=== PATIENT | male | born 1955 | race Caucasian/White ===

== ENCOUNTER 2022-04-20 06:46 | Day surgery (SDC) | payer MEDICARE ==
[~2022-04-20] VITALS: Ht 188 cm; Wt 112.9 kg
[~2022-04-20 06:46] MED LIST: Amlodipine Bes2.5 MG PO; Crestor20 MG PO; METO25ER PO; ZESTRIL40 M1 PO
--- NOTE | 2022-04-20 07:09 | NUR ---
04/20/22 0709 iSsi [place] CALL LIGHT WITHIN REACH. TETRACAINE AT 0659 AND PLEDGETT AT 0700 IN THE RIGHT EYE
--- NOTE | 2022-04-20 09:41 | NUR ---
04/20/22 0941 Marry Avendano CHARTED ON WRONG PT, CORRECTED.
== END 2022-04-20 09:05 | disposition home or self-care (01) ==
LOC: ORSCSDS 06:46
PROVIDERS: Ophthalmology
PROC: 08RJ3JZ Replacement of Right Lens with Synthetic Substitute, Percutaneous Approach (ICD-10-PCS; principal; 2022-04-20 08:00)
DX: H25.13 Age-related nuclear cataract, bilateral (principal); I10 Essential (primary) hypertension; E78.5 Hyperlipidemia, unspecified; E03.9 Hypothyroidism, unspecified; Z79.899 Other long term (current) drug therapy; Z85.47 Personal history of malignant neoplasm of testis
CPT/HCPCS: J2001; J2250; J3010; J3301; J7040; V2632

== ENCOUNTER 2022-04-27 09:29 | Day surgery (SDC) | payer MEDICARE ==
[~2022-04-27] VITALS: Ht 188 cm; Wt 113.8 kg
--- NOTE | 2022-04-27 10:28 | NUR ---
04/27/22 1028 Sisi [place] CALL LIGHT WITHIN REACH. TETRACAINE IN THE LEFT EYE AT 1022 AND PLEDGETT AT 1024
--- NOTE | 2022-04-27 11:29 | NUR ---
04/27/22 1129 CLAUDIA MARTINEZ PROCEDURE DONE UNDER LOCAL CAME IN EARLY.
== END 2022-04-27 11:35 | disposition home or self-care (01) ==
LOC: ORSCSDS 09:29
PROVIDERS: Ophthalmology
PROC: 08RK3JZ Replacement of Left Lens with Synthetic Substitute, Percutaneous Approach (ICD-10-PCS; principal; 2022-04-27 14:00)
DX: H25.12 Age-related nuclear cataract, left eye (principal); Z96.1 Presence of intraocular lens; I10 Essential (primary) hypertension; Z79.899 Other long term (current) drug therapy
CPT/HCPCS: J2001; J3301; J7040; V2632

== ENCOUNTER 2023-01-03 08:53 | Day surgery (SDC) | payer MEDICARE ==
[2023-01-03] VITALS (12 sets, daily range): BP systolic 105–155; BP diastolic 49–81
[~2023-01-03] VITALS: Ht 188 cm; Wt 109.0 kg
[2023-01-03] MEDS ORDERED: ASPI81CH PO (09:27)
--- NOTE | 2023-01-03 13:00 | NUR ---
PATIENT ARRIVED TO THE RECOVERY ROOM WITH FEM STOP IN PLACE OVER FEMORAL SITE. HEMATOMA NOTED. NO OOZING OR VISUAL BLEEDING FROM MYNX SITE. PATIENT HOB FLAT. SAND BAG PLACED OVER RIGHT GROIN SITE WITH FEM STOP HOLDING IN PLACE. VSS ON ROOM AIR.
[2023-01-03] MEDS ORDERED: CLOP75 PO (14:02)
--- NOTE | 2023-01-03 14:45 | NUR ---
MD AT BEDSIDE, HEMATOMA NOTED.
--- NOTE | 2023-01-03 15:00 | NUR ---
FEM STOP REMOVED FROM R GROIN SITE, NO EVIDENCE OF HEMATOMA ENLARGING. VSS ON ROOM AIR.
--- NOTE | 2023-01-03 15:04 | NUR ---
DR LINDSAY IN TO REVIEW R GROIN SITE, FEMSTOP WITH SLIGHT PRESSURE ON BAG FOR PRESSURE TO SITE
--- NOTE | 2023-01-03 16:05 | NUR ---
DISCHARGE PAPERWORK REVIEWED WITH PATIETN. ALL QUESTIONS WERE ANSWERED. PATIENT SCHEDULED FOR NEXT PROCEDURE. R GROIN SITE HEMATOMA NOTED, NO CHANGES IN GROWTH. NO SIGNS OF ACTIVE BLEEDING. VSS ON ROOM AIR.
--- NOTE | 2023-01-03 16:30 | NUR ---
PATIENT DISCHARGED HOME AT THIS TIME. ALL PATIENT BELONGINGS AND PAPERWORK LEFT WITH PATIENT. R GROIN SITE TENDER, NO EVIDENCE OF HEMATOMA ENLARGING. VSS ON ROOM AIR. PATIENT WHEELED TO HOSPITAL ENTRANCE, ABLE TO TRANSPORT HOME.
== END 2023-01-03 16:30 | disposition home or self-care (01) ==
LOC: MHTC 08:53
DX: I70.223 Atherosclerosis of native arteries of extremities with rest pain, bilateral legs (principal); I12.9 Hypertensive chronic kidney disease with stage 1 through stage 4 chronic kidney disease, or unspecified chronic kidney disease; N18.9 Chronic kidney disease, unspecified; G47.33 Obstructive sleep apnea (adult) (pediatric)
CPT/HCPCS: 76937; 99152; 99153; C1725; C1760; C1769; C1887; C1894; C2623; J1644; J2250; J3010; J7030; J7050; Q9967

== ENCOUNTER 2023-01-23 10:59 | Day surgery (SDC) | payer MEDICARE ==
[~2023-01-23] VITALS: Ht 188 cm; Wt 109.0 kg
[2023-01-23] VITALS (7 sets, daily range): BP systolic 103–158; BP diastolic 44–63
[~2023-01-23 10:59] MED LIST changes: +ASPI81CH PO; +CLOP75 PO
--- NOTE | 2023-01-23 14:33 | NUR ---
PATIENT ARRIVED TO RECOVERY ROOM CONVERSING APPROPRIATELY. HOB FLAT. L GROIN SITE C/D/I SOFT/NONTENDER, NO EVIDENCE OF HEMATOMA. PATIENT DENYING ANY PAIN. VSS ON ROOM AIR.
--- NOTE | 2023-01-23 15:23 | NUR ---
HOB ELEVATED 30 DEGREES. L GROIN SITE D/I SOFT/NONTENDER, NO EVIDENCE OF BLEEDING. VSS ON ROOM AIR. PATIENT TOLERATING PO INTAKE WELL.
--- NOTE | 2023-01-23 15:40 | NUR ---
PATIENT VOIDING ADEQUATELY WITHOUT DIFFICULTY USING URINAL
--- NOTE | 2023-01-23 17:07 | NUR ---
PATIENT AMBULATING WITH CANE TO BATHROOM WITHOUT DIFFICULTY. L GROIN SITE C/D/I SOFT/NONTENDER, NO EVIDENCE OF BLEEDING. VSS ON ROOM AIR
--- NOTE | 2023-01-23 17:30 | NUR ---
PATIENT DISCHARGED HOME AT THIS TIME. PIV REMOVED WITHOUT DIFFICULTY, CATHETER INTACT. DISCHARGE PAPERWORK AND ALL PATIENT BELONGINGS LEFT WITH PATIENT. PATIENT WHEELED TO PATIENT ENTRANCE. PATIENT SPOUSE ABLE TO TRANSPORT PATIENT HOME.
== END 2023-01-23 17:30 | disposition home or self-care (01) ==
LOC: MHTC 10:59
DX: I70.223 Atherosclerosis of native arteries of extremities with rest pain, bilateral legs (principal); N18.30 Chronic kidney disease, stage 3 unspecified; G47.33 Obstructive sleep apnea (adult) (pediatric); I12.9 Hypertensive chronic kidney disease with stage 1 through stage 4 chronic kidney disease, or unspecified chronic kidney disease
CPT/HCPCS: 37221; 37222; 75625; 75716; 75774; 76937; 99152; 99153; C1725; C1760; C1769; C1876; C1887; C1894; C2623; C9764; J1644; J2250; J3010; J7030; J7050; Q9967

== ENCOUNTER 2023-05-20 23:18 | Inpatient (IN) | payer MEDICARE ==
[~2023-05-20] VITALS: Ht 188 cm; Wt 108.2 kg
[2023-05-21] VITALS (15 sets, daily range): BP systolic 112–187; BP diastolic 59–102
[2023-05-21 00:35] LABS: BASOPHILS ABSOLUTE AUTO 0.03 K/mm3 (0.00-0.23); BASOPHILS PERCENT AUTO 0 % (0-2); EOSINOPHILS ABSOLUTE AUTO 0.01 K/mm3 (0.00-0.68); EOSINOPHILS PERCENT AUTO 0 % (0-6); Hemoglobin 10.7 g/dL (13.5-17.5); IMMATURE GRAN ABSOLUTE AUTO 0.02 K/mm3 (0.00-0.10); IMMATURE GRAN PERCENT AUTO 0 % (0-1); LYMPHOCYTES ABSOLUTE AUTO 0.73 K/mm3 (0.84-5.20); LYMPHOCYTES PERCENT AUTO 9 % (21-46); MONOCYTES ABSOLUTE AUTO 0.56 K/mm3 (0.16-1.47); MONOCYTES PERCENT AUTO 7 % (4-13); Mean Corpuscular HGB 29.1 pg (26.0-34.0); Mean Corpuscular HGB Conc 32.4 g/dL (31.5-36.5); Mean Corpuscular Volume 90 fL (80-100); Mean Platelet Volume 9.3 fL (9.1-12.4); NEUTROPHILS ABSOLUTE AUTO 6.82 K/mm3 (1.96-9.15); NEUTROPHILS PERCENT AUTO 84 % (41-73); Platelet Count 219 K/mm3 (150-400); RDW Coefficient Variation 14.6 % (11.7-14.2); RDW Standard Deviation 47.7 fL (35.1-46.3); Red Blood Cell Count 3.68 M/mm3 (4.30-5.90); White Blood Cell Count 8.17 K/mm3 (4.00-11.30)
[2023-05-21 00:58] LABS: Albumin, Blood 3.2 g/dL (3.4-5.0); Albumin/Globulin Ratio 0.7 (0.8-1.8); Bilirubin, Total 0.3 mg/dL (0.1-1.0); Bun/Creatinine Ratio 19.5 (12.0-20.0); Calcium, Blood 9.1 mg/dL (8.5-10.1); Creatinine, Blood 2.41 mg/dL (0.60-1.20); Globulin, Blood 4.4 g/dL (2.2-4.0); Potassium, Blood 4.6 mmol/L (3.5-5.5); Total Protein, Blood 7.6 g/dL (6.4-8.2)
--- NOTE | 2023-05-21 06:08 | NUR ---
Admit note. Pt admitted into PCU17 from the ED. Pt and were oriented to room and call light system. Pt denies CP since arriving to ED. Pt is able to make needs known. Call light is within reach.
[2023-05-21 09:41] LABS: BASOPHILS ABSOLUTE AUTO 0.02 K/mm3 (0.00-0.23); BASOPHILS PERCENT AUTO 0 % (0-2); EOSINOPHILS ABSOLUTE AUTO 0.08 K/mm3 (0.00-0.68); EOSINOPHILS PERCENT AUTO 1 % (0-6); Hematocrit 31.1 % (37.0-53.0); IMMATURE GRAN ABSOLUTE AUTO 0.02 K/mm3 (0.00-0.10); IMMATURE GRAN PERCENT AUTO 0 % (0-1); LYMPHOCYTES PERCENT AUTO 18 % (21-46); MONOCYTES PERCENT AUTO 12 % (4-13); Mean Corpuscular HGB Conc 32.2 g/dL (31.5-36.5); Mean Corpuscular Volume 90 fL (80-100); Mean Platelet Volume 9.1 fL (9.1-12.4); NEUTROPHILS ABSOLUTE AUTO 4.19 K/mm3 (1.96-9.15); NEUTROPHILS PERCENT AUTO 69 % (41-73); Platelet Count 205 K/mm3 (150-400); RDW Coefficient Variation 14.6 % (11.7-14.2); RDW Standard Deviation 47.4 fL (35.1-46.3); Red Blood Cell Count 3.45 M/mm3 (4.30-5.90); White Blood Cell Count 6.11 K/mm3 (4.00-11.30)
[2023-05-21 09:59] LABS: Albumin, Blood 2.9 g/dL (3.4-5.0); Albumin/Globulin Ratio 0.7 (0.8-1.8); Bilirubin, Total 0.3 mg/dL (0.1-1.0); Bun/Creatinine Ratio 20.2 (12.0-20.0); Calcium, Blood 8.9 mg/dL (8.5-10.1); Creatinine, Blood 2.08 mg/dL (0.60-1.20); Globulin, Blood 4.1 g/dL (2.2-4.0); Potassium, Blood 4.2 mmol/L (3.5-5.5)
--- NOTE | 2023-05-21 10:20 | NUR ---
AM note Patient alert, oriented x4; calm and cooperative with care. Patient denies pain, chest pain/pressure, sob, nausea, dizziness and numb/tingling. Pt tele sinus with pvc, bp stable. Spo2 >90% on ra, breathing even and unlabored. Abd soft, nontender, with normoactive bt. No edema noted at this time. Other vss. no other acute changes noted. Will continue to monitor. Plans for first portion of stress test this am and second portion tomorrow 05/21/23.
[2023-05-21 12:56] LABS: International Normalized Ratio 1.07; Prothrombin Time Results 11.2 Sec (9.7-11.5)
--- NOTE | 2023-05-21 17:12 | NUR ---
Shift Summary Pt had shirt episode of "slight chest pressure" while walking to the bathroom, it releived on its own, vss. No other acute changes. Stress test d/c, Dr Parmar at bedside this am, plans for angio tomorrow.
--- NOTE | 2023-05-21 17:52 | NUR ---
Patient report "mild" chest pain, BP elevated, notified Dr Parmar, new orders for nitro pastes and increased dose of metoprolol. Will continue to monitor.
--- NOTE | 2023-05-21 19:20 | NUR ---
Patients blood pressure trending down, chest pain down to 1/10.
[2023-05-22] VITALS (13 sets, daily range): BP systolic 104–158; BP diastolic 52–74
[2023-05-22 05:50] LABS: Bun/Creatinine Ratio 20.1 (12.0-20.0); Calcium, Blood 8.9 mg/dL (8.5-10.1); Creatinine, Blood 1.89 mg/dL (0.60-1.20); Potassium, Blood 4.4 mmol/L (3.5-5.5)
--- NOTE | 2023-05-22 06:33 | NUR ---
SHIFT SUMMARY PATIENT ALERT AND ORIENTED X4. STAND BY ASSIST TO THE RESTROOM. HAS HAD NO COMPLAINTS OF CHEST PAIN OR SHORTNESS OF BREATH. SPO2 >90% ON ROOM AIR. VITAL SIGNS STABLE, SINUS RHYTHM ON TELE. NO ACUTE ISSUES NOTED OVERNIGHT. WILL CONTINUE TO MONITOR. CALL LIGHT WITHIN REACH.
--- NOTE | 2023-05-22 09:49 | NUR ---
PT HAS LEFT FOR SESSIONS CLERK AT THIS TIME, SESSIONS CLERK IS AWARE THAT HEPARIN WAS D/C THIS AM
--- NOTE | 2023-05-22 17:48 | NUR ---
PT A/O X4, ANSWERING QUESTIONS APPROPRIATELY. DENIES CP, SR NOTED ON MONITOR. SKIN PWD AND INTACT. PT WENT TO [employer] TODAY, RT RADIAL SITE, HE HAD 1 STENT PLACED IN CIRC. THERE WAS NO ACTIVE BLEEDING FROM RADIAL SITE, THERE WAS BRUISING PRESENT FROM [employer], [facility] STAFF VERIFIED THAT THIS BRUISING WAS THERE UPON RETURNING PATIENT, THIS BRUISING DID NOT CHANGE AT ANY POINT DURING RECOVERY OF SITE. FULL ROM OF FINGERS TO RT HAND, DENIES PAIN, NUMBNESS OR TINGLING, PULSE INTACT. RADIAL SITE IS FULLY RECOVERED AT THE TIME OF THIS NOTE AND TEGADERM DRESSING IS IN PLACE. PT DENIES SOB. VSS. NADN. PLAN IS TO D/C IN THE AM
--- NOTE | 2023-05-22 22:50 | NUR ---
CARE ASSUMPTION this rn assumed care at 1900. vital signs stable. tele sr. patient is alert and oriented x4. perrla. patient reports no chest pain/pressure, pain, or shortness of breath. see shift assessment for further detials. patient is able to make needs known and uses call light appropriately.
[2023-05-23 03:28] VITALS: BP 137/73
[2023-05-23 04:16] LABS: BASOPHILS ABSOLUTE AUTO 0.02 K/mm3 (0.00-0.23); BASOPHILS PERCENT AUTO 0 % (0-2); EOSINOPHILS ABSOLUTE AUTO 0.14 K/mm3 (0.00-0.68); EOSINOPHILS PERCENT AUTO 2 % (0-6); Hematocrit 29.2 % (37.0-53.0); Hemoglobin 9.5 g/dL (13.5-17.5); IMMATURE GRAN ABSOLUTE AUTO 0.03 K/mm3 (0.00-0.10); IMMATURE GRAN PERCENT AUTO 0 % (0-1); LYMPHOCYTES ABSOLUTE AUTO 1.01 K/mm3 (0.84-5.20); LYMPHOCYTES PERCENT AUTO 13 % (21-46); MONOCYTES ABSOLUTE AUTO 0.71 K/mm3 (0.16-1.47); MONOCYTES PERCENT AUTO 9 % (4-13); Mean Corpuscular HGB 29.2 pg (26.0-34.0); Mean Corpuscular HGB Conc 32.5 g/dL (31.5-36.5); Mean Corpuscular Volume 90 fL (80-100); Mean Platelet Volume 9.5 fL (9.1-12.4); NEUTROPHILS ABSOLUTE AUTO 5.89 K/mm3 (1.96-9.15); NEUTROPHILS PERCENT AUTO 76 % (41-73); Platelet Count 190 K/mm3 (150-400); RDW Coefficient Variation 14.8 % (11.7-14.2); RDW Standard Deviation 48.6 fL (35.1-46.3); Red Blood Cell Count 3.25 M/mm3 (4.30-5.90)
[2023-05-23 04:53] LABS: Bun/Creatinine Ratio 20.2 (12.0-20.0); Calcium, Blood 8.6 mg/dL (8.5-10.1); Creatinine, Blood 1.63 mg/dL (0.60-1.20); Potassium, Blood 4.3 mmol/L (3.5-5.5)
--- NOTE | 2023-05-23 05:55 | NUR ---
shift summary patient neuro remains intact and unchanged. vital signs stable. tele sr. patient right radials site is swollen and bruised, but is clean dry and intact. patient reports no pain, chest pain/pressure, or shortness of breath. patient has been indepdent in room throughout the night. patient calls appropriately and is able to make needs known. plan is to discharge today. call light within reach.
[2023-05-23 07:45] VITALS: BP 163/84
[2023-05-23] MEDS ORDERED: METO50ER PO (12:19)
[2023-05-23] MEDS ORDERED: Crestor40 MG PO (12:24)
[2023-05-23] MEDS ORDERED: NITR.4SL SL (12:35)
[2023-05-23 12:55] VITALS: BP 127/60
--- NOTE | 2023-05-23 17:03 | NUR ---
DISCHARGE SUMMARY: PATIENT DENIED CHEST PAIN OR DISCOMFORT THROUGHOUT THE SHIFT. PATIENT UP INDEPENDENTLY IN THE ROOM. DENIED SHORTNESS OF BREATH OR DIZZINESS WHEN AT REST OR WITH MOVEMENT. PATIENT'S VITALS SIGNS STABLE. PATIENT STABLE ON ROOM AIR. TR BAND SITE MAINTAINED INITIAL FINDINGS AND MATCHED ASSESSMENTS FROM YESTERDAY AND NIGHT. ARM BAND IN PLACE THROUGHOUT SHIFT. DRESSING C/D/I. PATIENT ABLE TO TEACH BACK RESTRICTIONS ON RIGHT ARM MOBILITY. PATIENT KNOWLEDGEABLE ON MEDICATIONS AND REPORTS UNDERSTANDING OF THE NECESSITY TO CONTINUE PLAVIX AND ASA FOR ONE YEAR. PATIENT RECEIVED IV FLUIDS DURING THE DAY PER THE ORDER. URINE OUTPUT IS ADEQUATE. URINE IS CLEAR YELLOW. PER ORDERS, PATIENT READY FOR DISCHARGE. PATIENT DISCHARGE INSTRUCTIONS AND EDUCATION PROVIDED TO PATIENT AND HIS . ALL QUESTIONS AND CONCERNS ADDRESSED. PATIENT DISCHARGED IN WHEELCHAIR WITH SPOUSE AND [employer]. PATIENT STABLE AT TIME OF DISCHARGE.
== END 2023-05-23 13:25 | disposition home or self-care (01) | DRG 247 ==
LOC: ER 23:18 → PCU 23:19
PROVIDERS: Family Medicine; Internal Medicine Cardiovascular Disease; Student in an Organized Health Care Education/Training Program; ADMIT Internal Medicine
PROC: 4A023N7 Measurement of Cardiac Sampling and Pressure, Left Heart, Percutaneous Approach (ICD-10-PCS; principal; 2023-05-22)
PROC: 027035Z Dilation of Coronary Artery, One Artery with Two Drug-eluting Intraluminal Devices, Percutaneous Approach (ICD-10-PCS; 2023-05-22)
PROC: B2111ZZ Fluoroscopy of Multiple Coronary Arteries using Low Osmolar Contrast (ICD-10-PCS; 2023-05-22)
DX: I21.4 Non-ST elevation (NSTEMI) myocardial infarction (principal); Z68.41 Body mass index [BMI] 40.0-44.9, adult; J44.9 Chronic obstructive pulmonary disease, unspecified; G47.33 Obstructive sleep apnea (adult) (pediatric); E78.5 Hyperlipidemia, unspecified; I73.9 Peripheral vascular disease, unspecified; E66.01 Morbid (severe) obesity due to excess calories; I12.9 Hypertensive chronic kidney disease with stage 1 through stage 4 chronic kidney disease, or unspecified chronic kidney disease; N18.30 Chronic kidney disease, stage 3 unspecified; E78.00 Pure hypercholesterolemia, unspecified; J98.01 Acute bronchospasm; Z87.891 Personal history of nicotine dependence; Z88.8 Allergy status to other drugs, medicaments and biological substances; Z79.82 Long term (current) use of aspirin; Z79.899 Other long term (current) drug therapy; Z79.02 Long term (current) use of antithrombotics/antiplatelets; Z98.1 Arthrodesis status; Z98.890 Other specified postprocedural states
CPT/HCPCS: 36415; 71046; 76937; 80048; 80053; 83880; 84484; 85025; 85347; 85610; 85730; 93005; 93010; 93306; 93458; 96365; 96372; 99152; 99153; 99285-25; A9270; C1725; C1769; C1874; C1887; C1894; C9600; G0378; J1644; J1650; J2250; J3010; J3246; J7030; Q9967

== ENCOUNTER → 2023-08-16 | Outpatient (CLI) | payer MEDICARE ==
[~2023-08-16] MED LIST changes: +Crestor40 MG PO; +METO50ER PO; +NITR.4SL SL
[2023-08-16 13:29] LABS: Stool Occult Bld Immuno 1 Negative (NEGATIVE)
== END ==
LOC: LAB SHORT 11:47 → LAB 11:47
PROVIDERS: Registered Nurse Oncology
DX: D50.9 Iron deficiency anemia, unspecified (principal)
CPT/HCPCS: G0328

== ENCOUNTER 2024-05-07 11:03 | Emergency (ER) | payer MEDICARE ==
[~2024-05-07] VITALS: Ht 182.9 cm; Wt 81.7 kg
[2024-05-07 13:51] VITALS: BP 130/61
== END 2024-05-07 13:52 | disposition home or self-care (01) ==
LOC: ER 11:03
DX: K94.23 Gastrostomy malfunction (principal); I12.9 Hypertensive chronic kidney disease with stage 1 through stage 4 chronic kidney disease, or unspecified chronic kidney disease; N18.9 Chronic kidney disease, unspecified; Z86.73 Personal history of transient ischemic attack (TIA), and cerebral infarction without residual deficits; Z88.8 Allergy status to other drugs, medicaments and biological substances; Z79.82 Long term (current) use of aspirin; Z79.02 Long term (current) use of antithrombotics/antiplatelets; Z79.899 Other long term (current) drug therapy
CPT/HCPCS: 43762; 99282-25

== ENCOUNTER → 2024-08-20 | Outpatient (CLI) | payer MEDICARE ==
[~2024-08-20] MED LIST changes: +Acetaminophen650 M1 PO; +BISA10S PR; +Docusate S50 MG/5 ML PT; +FERSU300 PO; +Imdur-ER60 MG PO; +MAGNESIUM OXID500 MG PO; +NYSTATIN100000 U13 MT; +PANT40 PO; +Q-Tussin100 MG/5 M PO; +ROPI.25 PO; +VITAMIN E400 UNIT PO; +[UNRECOGNIZED DRUG - OTHER] SC
[2024-08-21 12:44] LABS: Stool Occult Bld Immuno 1 Positive (NEGATIVE)
== END | disposition home or self-care (01) ==
LOC: LAB 18:30 → LAB SHORT 18:30
PROVIDERS: Physician Assistant
DX: I48.91 Unspecified atrial fibrillation (principal); R19.5 Other fecal abnormalities
CPT/HCPCS: 82274; 84443

== ENCOUNTER → 2025-04-14 | Outpatient (CLI) | payer MEDICARE | END | disposition home or self-care (01) | LOC: LAB SHORT 13:00 → LAB 13:00 | DX: R31.9 Hematuria, unspecified (principal) | CPT/HCPCS: 87086 ==

== ENCOUNTER → 2025-04-24 | Outpatient (CLI) | payer MEDICARE ==
[2025-04-24 14:24] LABS: Source, Urine Clean Catch
[2025-04-24 16:24] LABS: White Blood Cells, Urine 50-100 /hpf (0-5)
== END ==
LOC: LAB SHORT 14:22 → LAB 14:22
PROVIDERS: Physician Assistant
DX: R31.0 Gross hematuria (principal)
CPT/HCPCS: 81015